=== PATIENT | male | born 1995 | race Caucasian/White ===

== ENCOUNTER 2018-07-12 23:58 | Emergency (ER) | payer OTHER ==
--- NOTE | 2018-07-13 00:03 | ED Physician Documentation ---
Wrist Injury - HISTORIAN Historian: patient - HPI Stated Complaint: hand pain after punching refridgerator Chief Complaint: Hand Injury Onset: just prior to arrival Where: home Severity: mild Duration: persistent since Context: blow Location of Injury: L hand Modifying Factors: pain on movement Further Comments: yes (He states he was angry so he hit the fridge. He has pain on the lateral side of his left hand pinky finger and side) - ROS CONST: no problems NEURO: none CVS/RESP: none - PAST HX Past History: none Immunizations: UTD Allergies/Adverse Reactions: Allergies Allergy/AdvReac Type Severity Reaction Status Date / Time No Known Allergies Allergy Verified 10/24/16 12:54 - SOCIAL HX Smoking History: non-smoker Drug Use: none - FAMILY HX Family History: none - VITAL SIGNS Vital Signs: Vital Signs Temp Pulse Resp BP Pulse Ox 112/82 06/11/13 00:11 - REVIEWED ASSESSMENTS Nursing Assessment Reviewed: Yes Vitals Reviewed: Yes Wrist Physical Exam - Physical Exam General Appearance: no acute distress, alert Hand: other (swelling and redness to lateral side of 5th finger. Decreased ROM. Sensation + ) Wrist: normal inspection, non-tender Neuro: sensation nml, motor nml Vascular: no vascular compromise Tendon: tendon function nml Forearm/Elbow/Arm: uninjured above wrist Skin: warm/dry, normal color Head/ENT: nml inspection Neck/Back: nml inspection Resp/CVS: chest non-tender, breath sounds nml, heart sounds nml, no resp. distress, lungs clear, reg. rate & rhythm Abdomen: non-tender, nml bowel sounds, no distention ED Results Lab/Radiology - Radiology Radiology Impressions: Three views of left hand Clinical history: Injury. Pain. Findings: Examination left hand in palmar, lateral and oblique views demonstrates fracture of the 5th metacarpal neck with slight palmar angulation of the distal fracture fragment. Bony structures are otherwise intact. Impression: 1. Fracture of the 5th metacarpal neck. Electronically signed on Jul 13, 2018 1:08:33 AM CDT by: Girish Singh Discharge Clincal Impression: Fracture, metacarpal, neck Qualifiers: Encounter type: initial encounter Metacarpal bone: fifth Fracture type: closed Fracture alignment: nondisplaced Laterality: unspecified laterality Qualified Code(s): S62.368A - Nondisplaced fracture of neck of other metacarpal bone, initial encounter for closed fracture Referrals: Primary Doctor,No [Primary Care Provider] - 2 Days Additional Instructions: 1. Keep area immobile 2. Ice for comfort 3. Tylenol or Ibuprofen for pain as directed on bottle as needed 4. Follow up with PCP Saturday for Ortho referral 5. Return to ER for any concerns Condition: Stable Decision to Admit: NO Date of Decison to Admit: 07/13/18 Decision Time: 01:42
[2018-07-13] MEDS ORDERED: KETOROLAC TROMETHAMINE 60 MG/2 ML VIAL IM ONE (01:37)
[2018-07-13 02:57] VITALS: BP 123/82
--- NOTE | 2018-07-13 18:33 | Diagnostic Imaging Report ---
[facility] [address] [facility].[address] [id number] Report Submission Date: Jul 13, 2018 1:08:33 AM CDT Patient Study Name: BAM LUCAS Date: Jul 13, 2018 12:43:25 AM CDT Modality Type: DX Gender: M Description: UPPER EXTREMITY : 89 Institution: [facility] Physician: ERLIN CLEMONS Three views of left hand Clinical history: Injury. Pain. Findings: Examination left hand in palmar, lateral and oblique views demonstrates fracture of the 5th metacarpal neck with slight palmar angulation of the distal fracture fragment. Bony structures are otherwise intact. Impression: 1. Fracture of the 5th metacarpal neck. Electronically signed on Jul 13, 2018 1:08:33 AM CDT by: Girish POWELL
== END 2018-07-13 02:21 ==
LOC: ED 23:58
DX: S62.36 Nondisplaced fracture of neck of other metacarpal bone (principal); W22.8XXA Striking against or struck by other objects, initial encounter; Y92.010 Kitchen of single-family (private) house as the place of occurrence of the external cause; Y93.9 Activity, unspecified; Y99.9 Unspecified external cause status
CPT/HCPCS: 73130; J1885; 96372; 99283